=== PATIENT | female | born 1990 | race Caucasian/White ===

== ENCOUNTER 2020-08-16 11:46 | Emergency (ER) | payer OTHER, SELFPAY ==
[2020-08-16 11:48] VITALS: BP 138/90; PULSE 82; RESP 15; TEMP 36.8; O2SAT 99; BMI 33.9
[2020-08-16] MEDS: IBUPROFEN 400 MG TABLET 800 MG PO (12:13)
--- NOTE | 2020-08-16 12:13 | ED_ITS ---
HPI - Burn/Smoke Inhalation <NORMA Clarke - Last Filed: 08/16/20 12:52> General Chief complaint: Burn/Smoke Inhalation Stated complaint: Roasted Right Hand At Work Time Seen by Provider: 08/16/20 12:06 Source: patient Mode of arrival: Ambulatory Limitations: no limitations History of Present Illness HPI Narrative: 29y female presents to the emergency department for burn to L hand. She states she accidentally spilled boiling water on her left hand this morning around 11AM. Patient states she immediately should the water off and stuck her hand in lukewarm water and then cold water for a few minutes. She states her last Tdap was in 2016. She denies any major medical issues or allergies. Patient denies any other symptoms such as fevers, chills, nausea, vomiting, diarrhea, further injury. Related Data Previous Rx's Medication Instructions Recorded fluoxetine 40 mg capsule 40 mg PO DAILY #90 cap 09/02/19 lamotrigine 200 mg tablet 400 mg .ROUTE .COMPLEX #60 tab 08/15/20 Allergies Allergy/AdvReac Type Severity Reaction Status Date / Time No Known Drug Allergies Allergy Verified 08/16/20 11:52 Review of Systems <NORMA Clarke - Last Filed: 08/16/20 12:52> Review of Systems Narrative: REVIEW OF SYSTEMS: GENERAL: Denies fever or chills. HENT: Denies head trauma. MUSCULOSKELETAL: Denies weakness, or deformities. INTEGUMENTARY: Complains of burn to L hand, see HPI. NEURO: Denies numbness or tingling. Patient History <NORMA Clarke - Last Filed: 08/16/20 12:52> Medical History Depression Social History marital status: unmarried,living together number of children: 1 household members: significant other lives independently: Yes caregiver/support person: No housing: apartment pets and animals: No education level: college occupational status: employed current occupational exposures/hazards: No leisure activities: music seatbelt use: always helmet use: Yes water heater temp set < 120 deg: Yes working smoke detector in home: Yes fire extinguisher in home: Yes carbon monox detector in home: Yes firearms in home: No do you feel safe at home: Yes Smoking Status: Never smoker during the past year weight has: remained stable well-balanced diet: rarely or never daily servings fruits/ve-1 caffeine: Yes eating out: 4 or more times/week Type(s) of exercise: none frequency: does not exercise duration: < 15 minutes/day Smoking Status: Never smoker alcohol intake frequency: holidays/special occasions only Substance Use Type: marijuana Exam <NORMA Clarke - Last Filed: 08/16/20 12:52> Initial Vital Signs Initial Vital Signs: Vital Signs Temperature 98.2 F 08/16/20 11:48 Pulse Rate 82 08/16/20 11:48 Respiratory Rate 15 08/16/20 11:48 Blood Pressure 138/90 08/16/20 11:48 Pulse Oximetry 99 08/16/20 11:48 PHYSICAL EXAMINATION: GENERAL: Well groomed, alert, and cooperative. Answers questions promptly and ap propriately. Vital signs noted. HENT: Normocephalic, atraumatic. RESPIRATORY: Normal respiratory rate, trachea midline, airway patent. No stridor, nasal flaring or accessory muscle use. MUSCULOSKELETAL: Normal gait and coordination. Equal tone and mass bilaterally. EXTREMITIES: CMS intact. Moves all extremities. SKIN: Warm, dry, soft, appropriate color for ethnicity. First degree funes with minimal amount of swelling noted to back of distal lateral aspect of hand extending in to 3rd, 4th, and 5th digit. One very small (<1cm) flat white blister noted to the lateral aspect of 3 finger above MCP joint (this is the only area of second-degree burn noted). Burn extends to lateral aspect of palmar side of 5th finger, does not appear to be completely circumferential. Burn also noted to palmar aspect of left 4th finger. Patient has full range of motion of fingers, does report pain when making a fist. No other blisters. NEURO: Alert and Oriented X 3. Good coordination. PSYCH: Appropriate affect and mood. <Tenisha Lindquist DO - Last Filed: 08/16/20 19:16> Initial Vital Signs Initial Vital Signs: Vital Signs Temperature 98.2 F 08/16/20 11:48 Pulse Rate 82 08/16/20 11:48 Respiratory Rate 15 08/16/20 11:48 Blood Pressure 138/90 08/16/20 11:48 Pulse Oximetry 99 08/16/20 11:48 Course <NORMA Clarke - Last Filed: 08/16/20 12:52> Orders Ordered: Discontinued Medications Ibuprofen (Ibuprofen 400 Mg Tablet) 800 mg PO NOW ONE Stop: 08/16/20 12:11 Last Admin: 08/16/20 12:13 Dose: 800 mg Documented by: MMINOR Silver Sulfadiazine (Silver Sulfadiazine 1% Cream 25 Gm) 1 applic TOP NOW ONE Stop: 08/16/20 12:32 Last Admin: 08/16/20 12:36 Dose: 1 applic Documented by: MMINOR Reevaluation(s) Reevaluation #1: Dr. Lindquist also viewed patient's burn, discussed history and plan of care for patient. Vital Signs Vital signs: Vital Signs - 8 hr 08/16/20 11:48 08/16/20 12:48 Temperature 98.2 F Pulse Rate 82 74 Respiratory Rate 15 18 Blood Pressure 138/90 138/90 Pulse Oximetry 99 99 <Tenisha Lindquist DO - Last Filed: 08/16/20 19:16> Orders Ordered: Discontinued Medications Ibuprofen (Ibuprofen 400 Mg Tablet) 800 mg PO NOW ONE Stop: 08/16/20 12:11 Last Admin: 08/16/20 12:13 Dose: 800 mg Documented by: MMINOR Silver Sulfadiazine (Silver Sulfadiazine 1% Cream 25 Gm) 1 applic TOP NOW ONE Stop: 08/16/20 12:32 Last Admin: 08/16/20 12:36 Dose: 1 applic Documented by: MMINOR Vital Signs Vital signs: Vital Signs - 8 hr 08/16/20 11:48 08/16/20 12:48 Temperature 98.2 F Pulse Rate 82 74 Respiratory Rate 15 18 Blood Pressure 138/90 138/90 Pulse Oximetry 99 99 MDM - Burn/Smoke Inhalation <NORMA Clarke - Last Filed: 08/16/20 12:52> Medical Records Attestation: I reviewed the patient's medical records. Lab Data Attestation: I reviewed the patient's lab results. MDM Narrative Medical decision making narrative: History and examination consistent with mostly first-degree burn, is very small less than 1 cm area of a second-degree burn due to a blister noted on left 3rd finger. Patient has full range of motion of hand with minimal swelling. She was given ibuprofen and Silvadene in the emergency department. She was encouraged to perform hand exercises and stretches to help with burn healing. We discussed importance of follow-up for further evaluation. Further burn consult is not needed at this time due to 1st degree burn, and minimal swelling. She was encouraged to return to the emergency department for any new or worsening symptoms especially swelling, severe pain, color change, or any other concerns. Patient agreed to plan of care verbalized understanding. She is up-to-date on a Tdap. Discharge Plan Departure Patient Disposition: Home Clinical Impression: First degree burn Burn of hand Qualifiers: Encounter type: initial encounter Burn of hand location: unspecified site Laterality: right Burn degree: superficial (1st degree) Qualified Code(s): T23.101A - Burn of first degree of right hand, unspecified site, initial encounter Instructions: DI for Funes Activity Restrictions/Additional Instructions: Thank you for entrusting me with your care today. As discussed, your burn is mostly 1st degree. We have given you silvadene ointment to apply to the area 1-2 times a day. I also recommend performing hand exercises and stretches to 3 times a day. These can be found on youtube, title: Funes 306: Burn Hand Stretches, these are treated by the [facility]. Follow-up with your primary care provider in the next week for further evaluation. Return emergency department for any new or worsening symptoms such as increased swelling, numbness, tingling, severe pain, or any other concerns. Prescriptions: No Action fluoxetine 40 mg capsule 40 mg PO DAILY Qty: 90 RF: 3 lamotrigine 200 mg tablet 400 mg .ROUTE .COMPLEX Qty: 60 RF: 0 Referrals: Ángela Ratliff MD [Primary Care Provider] - <Tenisha Lindquist DO - Last Filed: 08/16/20 19:16> Cosign ED Attending Cosignature Attestation: I was immediately available in the department for consultation. This documentation has been reviewed and I agree with assessment and plan. Patient also seen at bedside, appears to be majority is 1st degree burn does not appear to be 2nd degree but does have almost circumferential of fingers. Strict return precautions discussed and s/s to return emergently and reasons why. Supervised by Tenisha Lindquist, DO
--- NOTE | 2020-08-16 12:15 | PC.NURSE ---
ice bag given to pt to place on L hand
[2020-08-16] MEDS: SILVER SULFADIAZINE 1% CREAM 25 GM 1 APPLIC TOP (12:36)
[2020-08-16 12:48] VITALS: BP 138/90; PULSE 74; RESP 18; O2SAT 99
== END 2020-08-16 12:49 | disposition home or self-care (01) ==
PROVIDERS: Emergency Provider Nurse Practitioner; Family Provider Family Medicine; PCP Family Medicine
DX: T23.102A Burn of first degree of left hand, unspecified site, initial encounter (principal); X12.XXXA Contact with other hot fluids, initial encounter; Y99.0 Civilian activity done for income or pay
CPT/HCPCS: 99281

== ENCOUNTER 2020-12-07 18:34 | Emergency (ER) | payer OTHER, SELFPAY ==
[2020-12-07 18:41] VITALS: BP 144/90; PULSE 92; RESP 16; TEMP 35.9; O2SAT 96; BMI 35.5
[2020-12-07] MEDS: ONDANSETRON 4 MG ODT SL (19:21)
--- NOTE | 2020-12-07 19:58 | ED_ITS ---
HPI - Allergic Reaction General Chief complaint: Allergic Reaction Stated complaint: ALLERGIC REACTION Time Seen by Provider: 12/07/20 19:49 Source: patient Mode of arrival: Ambulatory Limitations: no limitations History of Present Illness HPI narrative: This is a 29-year-old female comes emergency department with c omplaint of feeling shaky, nauseated and having emesis here in the department. Patient has been afebrile. She has felt a little chilled. She has not any chest pain or shortness of breath she denies any abdominal pain. She denies any issues such as diarrhea or constipation. She has not any frequency, dysuria sense of urgency. Patient states she ran out of her fluoxetine on about 3-4 days ago. She thinks Thursday or Thursday. She normally takes 40 mg daily. She has not been able to refill her prescription. She took 2 tablets of her mother's Haldol yesterday as well as the day prior. She has not had any today. She began feeling shaky and unwell and somewhat groggy today. Patient denies other medical issues. She denies any allergies to medications. Related Data Previous Rx's Medication Instructions Recorded fluoxetine 40 mg capsule 40 mg PO DAILY #30 cap 11/02/20 lamotrigine 200 mg tablet 400 mg .ROUTE .COMPLEX #60 tab 11/02/20 fluoxetine 40 mg PO DAILY #10 cap 12/07/20 lamotrigine 400 mg PO DAILY #20 tab 12/07/20 Allergies Allergy/AdvReac Type Severity Reaction Status Date / Time No Known Drug Allergies Allergy Verified 08/16/20 11:52 Review of Systems Review of Systems ROS Unobtainable: All systems reviewed & are unremarkable except as noted in HPI and below Patient History Medical History Depression Social History marital status: unmarried,living together number of children: 1 household members: significant other lives independently: Yes caregiver/support person: No housing: apartment pets and animals: No education level: college occupational status: employed current occupational exposures/hazards: No leisure activities: music seatbelt use: always helmet use: Yes water heater temp set < 120 deg: Yes working smoke detector in home: Yes fire extinguisher in home: Yes carbon monox detector in home: Yes firearms in home: No do you feel safe at home: Yes Smoking Status: Current some day smoker during the past year weight has: remained stable well-balanced diet: rarely or never daily servings fruits/ve-1 caffeine: Yes eating out: 4 or more times/week Type(s) of exercise: none frequency: does not exercise duration: < 15 minutes/day Smoking Status: Current some day smoker tobacco type: vaping alcohol intake frequency: holidays/special occasions only Substance Use Type: marijuana Exam Narrative Exam Narrative: GENERAL: Alert and oriented x three, well-nourished female in mild distress. Patient did began having active emesis in the room during our evaluation. She had approximately 150 cc of emesis. HEENT: Head normocephalic, atraumatic, EOMI, pupils reactive, face symmetric, moist mucous membranes NECK: Supple, full range of motion CARDIOVASCULAR: Regular rate and rhythm without murmurs, rubs or gallops. RESPIRATORY: Breath sounds equal bilaterally, no wheezes rales or rhonchi. ABDOMEN: Soft, nontender. Normoactive bowel sounds all 4 quadrants. No guardi ng or rebound, rigidity, no mass : No CVA tenderness EXTREMITIES: Normal range of motion, no clubbing or edema. Neurovascularly intact NEUROLOGICAL: Cranial nerves II through XII grossly intact. Moving all extremities. Patient is slightly shaky. SKIN: Warm, dry, no petechiae, no rashes or lesions. Initial Vital Signs Initial Vital Signs: Vital Signs Temperature 96.6 F L 12/07/20 18:41 Pulse Rate 92 H 12/07/20 18:41 Respiratory Rate 16 12/07/20 18:41 Blood Pressure 144/90 H 12/07/20 18:41 Pulse Oximetry 96 12/07/20 18:41 Scores GCS [place] coma scale eye opening: Spontaneous [place] coma scale verbal response: Orientated Course Orders Ordered: ED Orders 12/07/20 20:21 Complete Blood Count AUTO DIFF Stat Comprehensive Metabolic Panel Stat Lipase Stat 12/07/20 21:17 Urine Culture Stat Urine Microscopic Stat Discontinued Medications Sodium Chloride (Normal Saline 0.9%) 1,000 mls @ 1,000 mls/hr IV BOLUS ONE Stop: 12/07/20 20:56 Last Infusion: 04/09/21 21:46 Dose: 0 mls/hr Documented by: Admin: 12/07/20 20:16 Dose: 1,000 mls/hr Documented by: SLIME Lorazepam (Lorazepam 2 Mg/Ml Inj) 0.5 mg IV NOW ONE Stop: 12/07/20 19:58 Last Admin: 12/07/20 20:15 Dose: 0.5 mg Documented by: SLIME Lorazepam (Lorazepam 0.5 Mg Tablet) 0.5 mg PO NOW ONE Stop: 12/07/20 21:21 Last Admin: 12/07/20 21:34 Dose: 0.5 mg Documented by: JEROD Ondansetron HCl (Ondansetron 4 Mg Odt) 4 mg SL NOW ONE Stop: 12/07/20 19:18 Last Admin: 12/07/20 19:21 Dose: 4 mg Documented by: EMILY Ondansetron HCl (Ondansetron 4 Mg/2 Ml Inj) 4 mg IV NOW ONE Stop: 12/07/20 19:58 Last Admin: 12/07/20 20:15 Dose: 4 mg Documented by: SLIME Ondansetron HCl (Ondansetron 4 Mg Odt Prepack) 1 bottle MISC SEEINSTR ONE Stop: 12/07/20 21:21 Last Admin: 12/07/20 21:34 Dose: 1 bottle Documented by: JEROD Reevaluation(s) Reevaluation #1: Patient is resting much more comfortably. She still feels a little bit shaky but is not continuing have any nausea or vomiting. She does have a leukocytosis, we discussed I suspect this is more reactive but she should return if she is having any infectious type symptoms otherwise. Her other labs were also reviewed. Patient is to restart her medications I suspect she is having withdrawal from stopping the suddenly. She has also not recommended take her mother's medication which she states she will not do in the future. Time: 21:10 Vital Signs Vital signs: Vital Signs - 8 hr 12/07/20 18:41 12/07/20 20:56 Temperature 96.6 F L Pulse Rate 92 H 73 Respiratory Rate 16 17 Blood Pressure 144/90 H 119/70 Pulse Oximetry 96 97 MDM - Allergic Reaction Lab Data Attestation: I reviewed the patient's lab results. Result diagrams: 12/07/20 20:21 12/07/20 20:21 Labs: Lab Results 12/07/20 12/07/20 12/07/20 Range/Units 20:21 20:21 21:17 WBC 19.5 H (4.5-11.0) X10^3/uL RBC 4.79 (4.0-5.2) X10^6/uL Hgb 14.1 (12.0-16.0) g/dL Hct 41.5 (36-46) % MCV 86.6 (80-100) fL MCH 29.4 (26-34) PG MCHC 34.0 (30-36) % RDW 13.0 (11.6-14.8) % Plt Count 398 (150-400) X10^3/uL Neut % (Auto) 77.4 H (50-75) % Lymph % (Auto) 15.5 L (25-40) % [place] % (Auto) 5.5 (3-14) % Eos % (Auto) 1.2 L (2-4) % Baso % (Auto) 0.4 (0-2) % Neut # (Auto) 39452 H (4366-2050) /uL Lymph # (Auto) 3000 (5511-1723) /uL [place] # (Auto) 1100 H (0-900) /uL Eos # (Auto) 200 (0-450) /uL Baso # (Auto) 100 (0-100) /uL Sodium 141 (137-145) mmol/L Potassium 3.9 (3.4-5.1) mmol/L Chloride 105 (98-107) mmol/L Carbon Dioxide 20 L (22-32) mmol/L BUN 9 (7-17) mg/dL Creatinine 0.72 (0.52-1.04) mg/dL Estimated GFR > 60.0 (>60) mL/min BUN/Creatinine Ratio 12.5 (6-22) Glucose 136 H (70-100) mg/dL Calcium 10.3 H (8.4-10.2) mg/dL Total Bilirubin 0.5 (0.2-1.3) mg/dL AST 23 (14-36) IU/L ALT 15 (<35) IU/L Alkaline Phosphatase 87 (38-126) U/L Total Protein 9.1 H (6.3-8.2) g/dL Albumin 5.0 (3.5-5.0) g/dL Globulin 4.1 (1.7-4.1) g/dL Albumin/Globulin Ratio 1.2 (1.0-2.8) Lipase 149 (23-300) U/L Urine RBC 0-1/hpf (0-5/HPF) Urine WBC 1-5/hpf (0-5/HPF) Ur Squamous Epith Cells 1-5 /hpf (0-5/HPF) Amorphous Sediment 1+ Urine Bacteria Moderate (10-30) H (None) Urine Mucus 2+ H (Negative) Ur Culture Indicated? Specimen cultured Point of Care Testing Test Results Negative Urine Dip Bedside Urine Glucose Negative Bedside Urine Bilirubin - Negative Bedside Urine Ketone - Negative Urine Specific [place] 1.030 Bedside Urine Occult Blood +/- Bedside Urine pH 5.5 Bedside Urine Protein +/- 15 Bedside Urine Urobilinogen - Negative Bedside Urine Nitrite - Negative Bedside Urine Leukocytes - Negative Esterase MDM Narrative Medical decision making narrative: Suspect patient is having some withdrawal symptoms from stopping her fluoxetine and lamotrigine suddenly. She had Haldol yesterday the day before which may have actually improved her symptoms somewhat. She has been nauseous and actively vomiting in the department but this has stopped after fluids, IV Zofran and Ativan. Patient still feels a little shaky but does feel better at this time. She does have a leukocytosis which I suspect is more reactive at this time. Patient was cautioned to return if she is not improving in the next 24 hours as there is potential for infection. Her other labs do not show major abnormalities that are suspicious for infection. Patient was given a short-term script to restart her medications and she needs to follow up with her primary care for long-term refills. Discharge Plan Departure Patient Disposition: Home Clinical Impression: Nausea & vomiting Instructions: DI for Vomiting -- Adult Activity Restrictions/Additional Instructions: I suspect your are going through some withdrawl symptoms from suddenly stopping your medication. Take zofran 1 tablet every 6 hours as needed for nausea. You may take Ativan 1 tablet every 6-8 hours as needed for shakiness and nausea. Please restart her home medications tomorrow. You will need to contact your primary care physician for long-term prescription. Prescription to [facility] in [place]. It is not recommended to suddenly start and stop these medications the typically require a taper. Please return for fevers greater 100.4 F, new or worsening chest pain, abdominal, back or flank pain, persistent vomiting, black or bloody stools, difficulty with urination, inability to urinate, or worsening symptoms. Prescriptions: New fluoxetine 40 mg capsule 40 mg PO DAILY Qty: 10 RF: 0 lamotrigine 200 mg tablet 400 mg PO DAILY Qty: 20 RF: 0 No Action lamotrigine 200 mg tablet 400 mg .ROUTE .COMPLEX Qty: 60 RF: 0 fluoxetine 40 mg capsule 40 mg PO DAILY Qty: 30 RF: 0 Referrals: Ángela Ratliff MD [Primary Care Provider] - Stand Alone Forms: Work Release Note
[2020-12-07] MEDS: ONDANSETRON 4 MG/2 ML INJ IV (20:15)
[2020-12-07] MEDS: LORazepam 2 MG/ML INJ 0.5 MG IV (20:15)
[2020-12-07] MEDS: SODIUM CHLORIDE 0.9% 1,000 ML 1000 ML IV (20:16)
[2020-12-07 20:32] LABS: Add Manual Diff / Slide Review NO; Basophils Absolute Auto 100 /uL (0-100); Basophils Percent Auto 0.4 % (0-2); Eosinophils Absolute Auto 200 /uL (0-450); Eosinophils Percent Auto 1.2 % (2-4); Hematocrit 41.5 % (36-46); Hemoglobin 14.1 g/dL (12.0-16.0); Lymphocytes Absolute Auto 3000 /uL (1100-4500); Lymphocytes Percent Auto 15.5 % (25-40); Mean Corpuscular Hemoglobin 29.4 PG (26-34); Mean Corpuscular Volume 86.6 fL (80-100); Monocytes Absolute Auto 1100 /uL (0-900); Monocytes Percent Auto 5.5 % (3-14); Neutrophils Absolute Auto 15100 /uL (1500-7000); Neutrophils Percent Auto 77.4 % (50-75); Platelet Count 398 X10^3/uL (150-400); Red Blood Cell Count 4.79 X10^6/uL (4.0-5.2); White Blood Cell Count 19.5 X10^3/uL (4.5-11.0)
[2020-12-07 20:45] LABS: Alanine Aminotransferase 15 IU/L (<35); Albumin Globulin Ratio 1.2 (1.0-2.8); Alkaline Phosphatase 87 U/L (38-126); Aspartate Aminotransferase 23 IU/L (14-36); BUN Creatinine Ratio 12.5 (6-22); Bilirubin Total 0.5 mg/dL (0.2-1.3); Blood Urea Nitrogen 9 mg/dL (7-17); Calcium 10.3 mg/dL (8.4-10.2); Carbon Dioxide 20 mmol/L (22-32); Chloride 105 mmol/L (98-107); Estimated Glomerular Filt Rate > 60.0 mL/min (>60); Globulin 4.1 g/dL (1.7-4.1); Glucose 136 mg/dL (70-100); HEMOLYSIS 25 (0-50); Lipase 149 U/L (23-300); Potassium 3.9 mmol/L (3.4-5.1); Sodium 141 mmol/L (137-145); Total Protein 9.1 g/dL (6.3-8.2)
[2020-12-07 20:56] VITALS: BP 119/70; PULSE 73; RESP 17; O2SAT 97
[2020-12-07 21:25] LABS: Amorphous Sediment Urine 1+; RBC Urine 0-1/HPF (0-5/HPF); Squamous Epithelial Cell Urine 1-5 /HPF (0-5/HPF); WBC Urine 1-5/HPF (0-5/HPF)
[2020-12-07 21:26] LABS: Bacteria Urine Moderate (10-30); Culture Indicated Urine Specimen Cultured; Mucus Urine 2+ (Negative)
[2020-12-07] MEDS: LORazepam 0.5 MG TABLET PO (21:34)
[2020-12-07] MEDS: ONDANSETRON 4 MG ODT PREPACK 1 BOTTLE MISC (21:34)
== END 2020-12-07 21:40 | disposition home or self-care (01) ==
PROVIDERS: Emergency Provider Emergency Medicine; Family Provider Family Medicine; PCP Family Medicine
DX: R11.2 Nausea with vomiting, unspecified (principal); Z91.14 Patient's other noncompliance with medication regimen
CPT/HCPCS: 36415; 80053; 81003; 81015; 81025; 83690; 85025; 87086; 96361; 96374; 96375; 99283; 99284; J2060; J2405

== ENCOUNTER → 2023-01-23 12:28 | Outpatient (CLI) | payer OTHER, MEDICAID, SELFPAY ==
[2023-01-23 13:11] LABS: Add Manual Diff / Slide Review NO; Basophils Absolute Auto 100 /uL (0-100); Basophils Percent Auto 0.7 % (0-2); Eosinophils Absolute Auto 300 /uL (0-450); Eosinophils Percent Auto 2.9 % (2-4); Hematocrit 41.1 % (36-46); Hemoglobin 13.7 g/dL (12.0-16.0); Lymphocytes Absolute Auto 3600 /uL (1100-4500); Lymphocytes Percent Auto 31.2 % (25-40); Mean Corpuscular HGB Conc 33.4 % (30-36); Mean Corpuscular Hemoglobin 27.4 PG (26-34); Monocytes Absolute Auto 900 /uL (0-900); Monocytes Percent Auto 7.4 % (3-14); Neutrophils Absolute Auto 6700 /uL (1500-7000); Neutrophils Percent Auto 57.8 % (50-75); Platelet Count 393 X10^3/uL (150-400); Red Blood Cell Count 5.01 X10^6/uL (4.0-5.2); White Blood Cell Count 11.7 X10^3/uL (4.5-11.0)
[2023-01-23 13:32] LABS: Creatinine Urine Random 101.5 mg/dL
[2023-01-23 13:36] LABS: Alanine Aminotransferase 37 IU/L (<35); Albumin 4.8 g/dL (3.5-5.0); Albumin Globulin Ratio 1.2 (1.0-2.8); Alkaline Phosphatase 77 U/L (38-126); Aspartate Aminotransferase 33 IU/L (14-36); BUN Creatinine Ratio 7.1 (6-22); Bilirubin Total 0.4 mg/dL (0.2-1.3); Blood Urea Nitrogen 5 mg/dL (7-17); Calcium 9.5 mg/dL (8.4-10.2); Carbon Dioxide 24 mmol/L (22-32); Chloride 100 mmol/L (98-107); Cholesterol 184 mg/dL (140-199); Estimated Glomerular Filt Rate > 60 mL/min (>60); Globulin 3.9 g/dL (1.7-4.1); Glucose 112 mg/dL (70-100); HDL Cholesterol 38 mg/dL (40-60); HEMOLYSIS < 15 (0-50); LDL Cholesterol Calculated 111 mg/dL (<100); Potassium 3.3 mmol/L (3.4-5.1); Sodium 138 mmol/L (137-145); Total Protein 8.7 g/dL (6.3-8.2); Triglycerides 173 mg/dL (35-150)
[2023-01-23 13:41] LABS: Microalbumin Urine Random < 0.6 mg/dL (0-1.6)
[2023-01-23 14:03] LABS: TSH w/ Reflex to FT4 1.37 uIU/mL (0.47-4.68)
== END ==
PROVIDERS: Family Provider Family Medicine; PCP Family Medicine; Referring Provider Physician Assistant; Visit Provider Physician Assistant
DX: I10 Essential (primary) hypertension (principal); Z68.42 Body mass index [BMI] 45.0-49.9, adult
CPT/HCPCS: 36415; 80053; 80061; 82043; 82570; 84443; 85025

== ENCOUNTER → 2023-03-10 13:03 | Outpatient (CLI) | payer OTHER, MEDICAID, SELFPAY ==
[2023-03-10 13:51] LABS: BUN Creatinine Ratio 8.1 (6-22); Blood Urea Nitrogen 6 mg/dL (7-17); Calcium 9.2 mg/dL (8.4-10.2); Carbon Dioxide 22 mmol/L (22-32); Chloride 105 mmol/L (98-107); Estimated Glomerular Filt Rate > 60 mL/min (>60); Glucose 105 mg/dL (70-100); HEMOLYSIS 44 (0-50); Potassium 4.2 mmol/L (3.4-5.1); Sodium 139 mmol/L (137-145)
== END ==
PROVIDERS: Family Provider Family Medicine; PCP Family Medicine; Referring Provider Physician Assistant; Visit Provider Physician Assistant
DX: I10 Essential (primary) hypertension (principal)
CPT/HCPCS: 36415; 80048

== ENCOUNTER → 2023-07-02 15:06 | Outpatient (CLI) | payer OTHER, MEDICAID, SELFPAY ==
[2023-07-02 18:28] LABS: BUN Creatinine Ratio 11.9 (6-22); Blood Urea Nitrogen 8 mg/dL (7-17); Calcium 9.7 mg/dL (8.4-10.2); Carbon Dioxide 25 mmol/L (22-32); Chloride 102 mmol/L (98-107); Estimated Glomerular Filt Rate > 60 mL/min (>60); Glucose 97 mg/dL (70-100); HEMOLYSIS 41 (0-50); Potassium 4.3 mmol/L (3.4-5.1); Sodium 137 mmol/L (137-145)
== END ==
PROVIDERS: Family Provider Family Medicine; PCP Family Medicine; Referring Provider Physician Assistant; Visit Provider Physician Assistant
DX: R11.2 Nausea with vomiting, unspecified (principal)
CPT/HCPCS: 36415; 80048

== ENCOUNTER → 2023-07-03 16:56 | Outpatient (CLI) | payer OTHER, MEDICAID, SELFPAY ==
--- NOTE | 2023-07-03 16:57 | DI.US.S_ITS ---
PROCEDURE: US ABDOMEN LIMITED INDICATIONS: Persistent nausea and vomting TECHNIQUE: Real-time scanning was performed of the abdominal and retroperitoneal organs, with image documentation. COMPARISON: None. FINDINGS: Liver: Liver is normal in size and homogeneous in echotexture. Main portal vein is hepatopetal. Gallbladder: Absent. Biliary ducts: Intrahepatic bile ducts are non-dilated. Extrahepatic bile duct caliber measures 5 mm. Normal is 6-7 mm or less in diameter, or 10 mm or less post-cholecystectomy. Pancreas: Visualized portions of the pancreas are sonographically normal. IMPRESSION: No acute abnormality identified. Post cholecystectomy. No biliary ductal dilatation. If clinically indicated, consider further evaluation with CT abdomen pelvis with IV contrast. Dictated by: José Luis Hooper M.D. on 07/06/2023 at 8:03 Approved by: José Luis Hooper M.D. on 07/06/2023 at 8:06
== END ==
PROVIDERS: Family Provider Family Medicine; PCP Family Medicine; Referring Provider Physician Assistant; Visit Provider Physician Assistant
DX: R11.2 Nausea with vomiting, unspecified (principal); Z90.49 Acquired absence of other specified parts of digestive tract
CPT/HCPCS: 76705

== ENCOUNTER 2023-07-17 06:31 | Day surgery (SDC) | payer OTHER, MEDICAID, SELFPAY ==
[2023-07-09 12:29] VITALS: BMI 41.9
[2023-07-17] VITALS (7 sets, daily range): BP systolic 112–143; BP diastolic 66–89; PULSE 62–93; RESP 16–20; TEMP 36.1–36.2; O2SAT 96–100; BMI 41.9
--- NOTE | 2023-07-17 | PATH_ITS ---
[facility] Accession Number: [id number] No. of containers..01 Tissue . 01 Material submitted: . fallopian tube - BILATERAL FALLOPIAN TUBES . 01 Diagnosis: Bilateral Fallopian Tubes, Bilateral Salpingectomies: Fallopian tubes x2, complete cross-sections; negative for significant atypia. Scattered benign paratubal cysts are associated with the grossly described shorter fallopian tube. [facility] 07/30/2023 1625 Local . 01 Electronically signed: . Viviane Jimenez MD, Pathologist NPI- [id number] . 01 Gross description: . The specimen is received in formalin, labeled with the patient's name, , and bilateral fallopian tubes, and consists of two unoriented, fimbriated fallopian tubes measuring 6.1 x 0.5 cm and 5.3 x 0.5 cm, respectively. The longer fallopian tube has violaceous, smooth serosa with no cystic structures identified. Sectioning reveals an unremarkable stellate lumen. The shorter fallopian tube has violaceous, smooth serosa with multiple cystic structures near the fimbriated end measuring up to 0.7 cm in greatest dimension filled with clear serous fluid. Sectioning reveals an unremarkable stellate lumen. [employer] sections to include one-half of the bisected fimbriae and cross sections are submitted as follows: A1: Longer fallopian tube. A2: [place] fallopian tube. ([id number]) /FRR 07/18/2023 1903 Local . 01 Pathologist provided ICD-10: Z30.2, Z30.46 . 01 CPT . 126350 Specimen Comment: A courtesy copy of this report has been sent to [facility] Performed at: 01 [facility] [address] [place] [address] [address], [place], [place] [id number] MD Denny Villafuerte MD Phone: [phone]
[2023-07-17] MEDS: SCOPOLAMINE 1 PATCH TOP (06:59)
[2023-07-17] MEDS: LACTATED RINGERS 1,000 ML 42 ML IV (07:29)
--- NOTE | 2023-07-17 07:37 | PM.PREOP ---
Pre-operative Note Interval Note History & Physical reviewed/Exam performed by Physician: Yes Changes to H&P: No H&P completed within 30 days and has changed as indicated here:: No changes since H&P on 07/06/23. Pt desires to proceed with sterilization via laparoscopic salpingectomy.
[2023-07-17] MEDS: ACETAMINOPHEN IV 1,000 MG/100 ML VIAL 400 MG IV (07:53)
--- NOTE | 2023-07-17 08:23 | SUR.OPER ---
Lithotomy on padded OR bed, head on pillow, right arm secured on padded arm boards at <90 degrees abduction. Left arm tucked with gel. Legs secured in padded yellow fins stirrups.
[2023-07-17] MEDS: BUPIVACAINE 0.25% (PF) VIAL 30 ML INJ (08:39)
--- NOTE | 2023-07-17 09:00 | P.OP_ITS ---
Operative Date/Time/Diagnoses Date of procedure: 07/17/23 Time of procedure: 08:00 Pre-op diagnosis: Undesired future fertility Post-op diagnosis: same Procedure & Clinicians Procedure: Laparoscopic bilateral salpingectomy Nexplanon removal Same procedure as scheduled: Yes Indications: Undesired future fertility Surgeon: Renea Kee Click Yes if Unassisted: Yes Anesthesia Type: General Operative Notes Findings: Normal appearing uterus, bilateral fallopian tubes, and bilateral ovaries. Normal appearing liver edge. Normal appendix. Specimen(s): other (bilateral fallopian tubes) Estimated Blood Loss (mL): 5 Procedure in detail: The risks, benefits, indications and alternatives of the procedure were reviewed with the patient and informed consent was obtained. The pt was taken to the operating room where general anesthesia was obtained without difficulty. The pt was then placed in the low lithotomy position using gel-padded Etienne Stirrups. Sequential compression devices were placed bilaterally for VTE prophylaxis. The left arm was palpated and the Nexplanon identified. The area was cleansed with betadine, and a 5mm skin incision was made. The Nexplanon was visualized and grasped with a hemostat, freed from connective tissue, and removed intact. The incision was then closed with a steri-strip. Pt was then prepped and draped in the usual sterile fashion. A Jaramillo catheter was placed without difficulty. A sponge stick was placed in the vagina as a means to manipulate the uterus. Attention was then turned to the patient?s abdomen where a 5mm skin incision was made in the inferior aspect of the umbilicus after injection of 0.25% marcaine. A 5mm trocar and sleeve were then carefully introduced into the peritoneal cavity under direct visualization at a 90-degree angle while tenting up the abdominal wall. Intra-peritoneal placement was confirmed under direct visualization with the laparoscope with entry pressure <5mmHg. A pneumoperitoneum was obtained with several liters of CO2 gas, maximum pressure of 15mmHg. Upon entry into the peritoneal cavity, structures immediately below the incision were inspected and found to be free of injury. Two additional 5mm trocars were placed in the left lateral aspect of the abdominal wall under direct laparoscopic visualization after injection of 0.25% marcaine at each site. A survey of the pt?s abdomen and pelvis was notable for the above findings. Using an atraumatic grasper, the left fallopian tube was tented up. In a stepwise fashion, the left fallopian tube was removed from the fimbriated end to the cornual end with ultimate excision of the fallopian tube using the Powerseal bipolar device. The same procedure was performed on the patient?s right side to excise the right fallopian tube. Both fallopian tubes were removed from the abdomen via the lateral port sites. All pedicles were re-examined and noted to be hemostatic. The gas was then turned off and all CO2 was removed from the pt?s abdomen. The t rocars were removed. The skin incision sites were reapproximated using 4-0 monocryl and dermabond. The sponge stick was removed from the vagina, and the jaramillo catheter was removed from the bladder. All instruments were confirmed to be removed from the vagina. At the completion of the case the sponge and needle counts were correct x 2. The patient tolerated the procedure well and was taken to the PACU in stable condition. Complications: none Post-operative Condition: stable Disposition: PACU Plan for aftercare: Follow-up in 2wks for postop appointment.
[2023-07-17] MEDS: hydrOXYzine pamoate 25 MG CAPSULE PO (09:24)
[2023-07-17] MEDS: ONDANSETRON 4 MG/2 ML INJ IV (09:24)
== END 2023-07-17 09:51 | disposition home or self-care (01) ==
PROVIDERS: Family Provider Family Medicine; PCP Family Medicine; Referring Provider Student in an Organized Health Care Education/Training Program; Visit Provider Student in an Organized Health Care Education/Training Program
PROC: (CPT 58661; principal; 2023-07-17 07:45)
DX: Z30.2 Encounter for sterilization (principal); Z30.46 Encounter for surveillance of implantable subdermal contraceptive; N83.8 Other noninflammatory disorders of ovary, fallopian tube and broad ligament
CPT/HCPCS: 58661; J0131; J0330; J1100; J1885; J2250; J2405; J2704; J3010; J3490

== ENCOUNTER → 2024-08-13 12:14 | Outpatient (CLI) | payer OTHER, SELFPAY ==
[2024-08-13 13:06] LABS: Hemoglobin A1C% w Est Avg Glu 5.2 % (4.0-6.0)
[2024-08-13 13:10] LABS: Cholesterol 171 mg/dL (140-199); HDL Cholesterol 40 mg/dL (40-60); LDL Cholesterol Calculated 96 mg/dL (<100); Triglycerides 175 mg/dL (35-150)
== END ==
PROVIDERS: Family Provider Family Medicine; PCP Family Medicine; Referring Provider Family Medicine; Visit Provider Family Medicine
DX: Z13.220 Encounter for screening for lipoid disorders (principal); Z13.1 Encounter for screening for diabetes mellitus; I10 Essential (primary) hypertension; Z68.42 Body mass index [BMI] 45.0-49.9, adult
CPT/HCPCS: 36415; 80061; 83036

== ENCOUNTER → 2025-03-29 09:36 | Outpatient (CLI) | payer OTHER, SELFPAY ==
[2025-03-29 10:37] LABS: Influenza A - CEPHEID Flu A NEGATIVE (NEGATIVE); Influenza B - CEPHEID Flu B NEGATIVE (NEGATIVE)
[2025-03-29 10:38] LABS: COVID-19 CEPHEID 4-PLEX PCR Negative (Negative)
== END ==
PROVIDERS: Family Provider Family Medicine; PCP Family Medicine; Visit Provider Chiropractor
DX: R05.1 Acute cough (principal); J02.9 Acute pharyngitis, unspecified
CPT/HCPCS: 87070; 87147; 87637